=== PATIENT | male | born 1995 | race Caucasian/White ===

== ENCOUNTER 2017-01-08 15:34 | Emergency (ER) | payer OTHER ==
[~2017-01-08 15:34] MED LIST: NAPROSYN500 MG PO; NOHOMEMEDS; VALIUM5 MG PO
[2017-01-08 15:48] LABS: BASOPHIL COUNT 0.1 K/uL (0-0.1); EOSINOPHIL (%) 1.5 % (0-5); EOSINOPHIL COUNT 0.2 K/uL (0-0.3); HEMATOCRIT 43.7 % (38.0-50.0); IMMATURE GRANULOCYTE (%) 0.5 % (0.0-0.7); IMMATURE GRANULOCYTE COUNT 0.1 K/uL; INSTRUMENT ABS NEUTROPHIL CT 7.2 K/uL; LYMPHOCYTE COUNT 1.9 K/uL (1.0-2.8); MCHC 35.2 G/DL (30.0-36.0); MCV 90.7 FL (86-99); MEAN PLAT.VOLUME 10.3 uM^3 (9.0-12.4); MONOCYTE (%) 5.7 % (3-12); MONOCYTE COUNT 0.6 K/uL (0-0.8); NEUTROPHIL (%) 72.4 % (45-76); NEUTROPHIL COUNT 7.2 K/uL (1.8-6.4); PLATELET COUNT 207 K/uL (156-360); RBC DIS.WIDTH-CV 11.5 % (11.8-14.6); RBC DIS.WIDTH-SD 38.2 % (39-53); RED BLOOD COUNT 4.82 M/uL (4.00-5.50); WHITE BLOOD COUNT 9.9 K/uL (4.1-10.2)
[2017-01-08 15:57] LABS: AMYLASE 59 IU/L (1-118); CHLORIDE 106 mEq/L (99-109); POTASSIUM 4.1 mEq/L (3.7-5.4); SODIUM 137 mEq/L (136-147)
[2017-01-08 15:59] LABS: GLUCOSE 111 mg/dL (70-99)
[2017-01-08 16:00] LABS: ANION GAP 8 MEQ/L (2-14)
[2017-01-08 16:02] LABS: SERUM ETHYL ALCOHOL < 10 mg/dL
[2017-01-08 16:03] LABS: GFR ESTIMATE (CALCULATED) > 59 mL/min/; UREA NITROGEN (BUN) 10 mg/dL (9-23)
[2017-01-08 16:06] LABS: LIPASE 10 U/L (1.0-51.0)
== END 2017-01-08 22:30 | disposition short-term general hospital (02) ==
LOC: TRA 15:34
PROVIDERS: Emergency Medicine
PROC: 2W3DX1Z Immobilization of Left Lower Arm using Splint (ICD-10-PCS; principal; 2017-01-08)
DX: S42.402A Unspecified fracture of lower end of left humerus, initial encounter for closed fracture (principal); V23.4XXA Motorcycle driver injured in collision with car, pick-up truck or van in traffic accident, initial encounter
CPT/HCPCS: 70450; 71010; 73060; 73070; 73090; 73140; 80048; 81003; 82150; 83690; 85025; 86850; 86900; 86901; 99281; 99285; G0480; J1885; J2060; J2405; J3010

== ENCOUNTER 2017-01-11 12:43 | Emergency (ER) | payer OTHER ==
[~2017-01-11] VITALS: Ht 177.8 cm; Wt 75.6 kg
[2017-01-11] MEDS ORDERED: OXYCODONE HCL10 MG PO (13:12)
[2017-01-11 13:57] VITALS: BP 125/71
== END 2017-01-11 14:27 | disposition home or self-care (01) ==
LOC: EME 12:43
PROC: 2W39X1Z Immobilization of Left Upper Extremity using Splint (ICD-10-PCS; principal; 2017-01-11)
DX: S42.302A Unspecified fracture of shaft of humerus, left arm, initial encounter for closed fracture (principal); S30.22XA Contusion of scrotum and testes, initial encounter; V99.XXXA Unspecified transport accident, initial encounter; F17.200 Nicotine dependence, unspecified, uncomplicated
CPT/HCPCS: 99281; 99284

== ENCOUNTER 2017-02-13 19:42 | Emergency (ER) | payer OTHER ==
[~2017-02-13] VITALS: Ht 180.3 cm; Wt 85.1 kg
[~2017-02-13 19:42] MED LIST changes: +OXYCODONE HCL10 MG PO
[2017-02-13] MEDS ORDERED: CLEOCIN300 MG PO (20:26)
[2017-02-13 20:34] VITALS: BP 154/84
== END 2017-02-13 20:35 | disposition home or self-care (01) ==
LOC: EME 19:42
DX: T81.31XA Disruption of external operation (surgical) wound, not elsewhere classified, initial encounter (principal); T81.4XXA Infection following a procedure, initial encounter; L03.114 Cellulitis of left upper limb; V89.2XXS Person injured in unspecified motor-vehicle accident, traffic, sequela
CPT/HCPCS: 99281; 99283

== ENCOUNTER 2017-03-23 16:24 | Emergency (ER) | payer OTHER ==
[~2017-03-23] VITALS: Ht 180.3 cm; Wt 81.9 kg
[~2017-03-23 16:24] MED LIST changes: +CLEOCIN300 MG PO
[2017-03-23 20:23] VITALS: BP 118/84
== END 2017-03-23 20:24 | disposition home or self-care (01) ==
LOC: EME 16:24
PROC: 0HQFXZZ Repair Right Hand Skin, External Approach (ICD-10-PCS; principal; 2017-03-23)
DX: S61.210A Laceration without foreign body of right index finger without damage to nail, initial encounter (principal); W25.XXXA Contact with sharp glass, initial encounter; F17.200 Nicotine dependence, unspecified, uncomplicated
CPT/HCPCS: 99281; 99284; S0020

== ENCOUNTER 2017-09-06 14:56 | Emergency (ER) | payer OTHER ==
[~2017-09-06] VITALS: Ht 180.3 cm; Wt 88.4 kg
[2017-09-06] MEDS ORDERED: TYLENOL EXTRA500 MG PO (17:06)
[2017-09-06 18:26] VITALS: BP 121/67
== END 2017-09-06 18:26 | disposition home or self-care (01) ==
LOC: EME 14:56
DX: R51 Headache (principal); F17.200 Nicotine dependence, unspecified, uncomplicated; Z88.5 Allergy status to narcotic agent
CPT/HCPCS: 99281; 99284; J0780; J1885